=== PATIENT | male | born 1960 | race Caucasian/White ===

== ENCOUNTER → 2019-02-12 07:09 | Outpatient (CLI) | payer OTHER, SELFPAY ==
[2019-02-12 08:26] LABS: Add Manual Diff / Slide Review NO; Basophils Absolute Auto 0 /uL (0-100); Basophils Percent Auto 0.2 % (0-2); Eosinophils Absolute Auto 100 /uL (0-450); Eosinophils Percent Auto 0.7 % (2-4); Hematocrit 43.3 % (41-53); Hemoglobin 14.7 g/dL (13.5-17.5); Lymphocytes Absolute Auto 3100 /uL (1100-4500); Lymphocytes Percent Auto 32.4 % (25-40); Mean Corpuscular HGB Conc 34.1 % (30-36); Mean Corpuscular Volume 94.1 fL (80-100); Monocytes Absolute Auto 800 /uL (0-900); Monocytes Percent Auto 8.2 % (3-14); Neutrophils Absolute Auto 5600 /uL (1500-7000); Neutrophils Percent Auto 58.5 % (50-75); Platelet Count 317 X10^3/uL (150-400); Red Cell Distribution Width 13.9 % (11.6-14.8); White Blood Cell Count 9.6 X10^3/uL (4.5-11.0)
[2019-02-12 08:45] LABS: Appearance Urine UA CLEAR; Bilirubin Urine UA NEGATIVE (NEGATIVE); Color Urine UA YELLOW; Glucose Urine UA NEGATIVE (Negative); Ketones Urine UA NEGATIVE (NEGATIVE); Leukocyte Esterase Urine UA NEGATIVE (NEGATIVE); Nitrite Urine UA NEGATIVE (Negative); Occult Blood Urine UA NEGATIVE (Negative); Protein Urine UA NEGATIVE (Negative); Specific Gravity Urine UA 1.025 (1.000-1.035); Urobilinogen Urine UA 0.2 E.U./dL (0.2)
[2019-02-12 08:49] LABS: Alanine Aminotransferase 13 IU/L (21-72); Albumin 4.3 g/dL (3.5-5.0); Albumin Globulin Ratio 1.2 (1.0-2.8); Alkaline Phosphatase 81 U/L (38-126); Aspartate Aminotransferase 22 IU/L (17-59); BUN Creatinine Ratio 13.3 (6-22); Bilirubin Total 0.8 mg/dL (0.2-1.3); Blood Urea Nitrogen 12 mg/dL (9-20); Calcium 9.7 mg/dL (8.4-10.2); Carbon Dioxide 27 mmol/L (22-32); Chloride 104 mmol/L (98-107); Cholesterol 171 mg/dL (140-199); Estimated Glomerular Filt Rate > 60.0 mL/min (>60); Globulin 3.6 g/dL (1.7-4.1); Glucose 100 mg/dL (70-100); HDL Cholesterol 58 mg/dL (40-60); HEMOLYSIS < 15 (0-50); LDL Cholesterol Calculated 102 mg/dL (<100); Potassium 4.6 mmol/L (3.4-5.1); Sodium 139 mmol/L (137-145); Total Protein 7.9 g/dL (6.3-8.2); Triglycerides 55 mg/dL (35-150)
[2019-02-12 09:18] LABS: Prostate Specific Antigen Scrn 1.34 ng/mL (0.1-4.0)
[2019-02-12 09:40] LABS: Thyroid Stimulating Hormone 1.02 uIU/mL (0.47-4.68)
== END ==
PROVIDERS: PCP Family Medicine; Visit Provider Family Medicine
DX: Z12.5 Encounter for screening for malignant neoplasm of prostate (principal); Z13.220 Encounter for screening for lipoid disorders; Z13.29 Encounter for screening for other suspected endocrine disorder
CPT/HCPCS: 36415; 80053; 80061; 81003; 84443; 85025; G0103

== ENCOUNTER → 2019-07-09 07:02 | Outpatient (CLI) | payer OTHER, SELFPAY ==
[2019-07-09 08:18] LABS: Add Manual Diff / Slide Review NO; Basophils Absolute Auto 0 /uL (0-100); Basophils Percent Auto 0.2 % (0-2); Eosinophils Absolute Auto 100 /uL (0-450); Eosinophils Percent Auto 0.5 % (2-4); Hematocrit 38.1 % (41-53); Hemoglobin 12.9 g/dL (13.5-17.5); Lymphocytes Absolute Auto 2900 /uL (1100-4500); Lymphocytes Percent Auto 24.9 % (25-40); Mean Corpuscular HGB Conc 33.9 % (30-36); Mean Corpuscular Hemoglobin 30.8 PG (26-34); Mean Corpuscular Volume 90.9 fL (80-100); Monocytes Absolute Auto 900 /uL (0-900); Monocytes Percent Auto 8.1 % (3-14); Neutrophils Absolute Auto 7800 /uL (1500-7000); Neutrophils Percent Auto 66.3 % (50-75); Platelet Count 387 X10^3/uL (150-400); Red Blood Cell Count 4.19 X10^6/uL (4.5-5.9); White Blood Cell Count 11.7 X10^3/uL (4.5-11.0)
[2019-07-09 08:45] LABS: Alanine Aminotransferase 10 IU/L (<50); Albumin Globulin Ratio 1.2 (1.0-2.8); Alkaline Phosphatase 102 U/L (38-126); Aspartate Aminotransferase 19 IU/L (17-59); BUN Creatinine Ratio 16.7 (6-22); Bilirubin Total 0.5 mg/dL (0.2-1.3); Blood Urea Nitrogen 15 mg/dL (9-20); Calcium 9.3 mg/dL (8.4-10.2); Carbon Dioxide 29 mmol/L (22-32); Chloride 102 mmol/L (98-107); Estimated Glomerular Filt Rate > 60.0 mL/min (>60); Globulin 3.3 g/dL (1.7-4.1); Glucose 123 mg/dL (70-100); HEMOLYSIS < 15 (0-50); Sodium 138 mmol/L (137-145); Total Protein 7.3 g/dL (6.3-8.2)
[2019-07-09 08:48] LABS: HEMOLYSIS < 15 (0-50); Iron 58 ug/dL (49-181)
[2019-07-09 08:59] LABS: Percent Iron Saturation 19 % (20-50); Total Iron Binding Capacity 299 ug/dL (261-462); Transferrin 236 mg/dL (206-381)
== END ==
PROVIDERS: Visit Provider Nurse Practitioner
DX: F10.11 Alcohol abuse, in remission (principal); K92.0 Hematemesis; K92.1 Melena; R13.10 Dysphagia, unspecified
CPT/HCPCS: 36415; 80053; 83540; 83550; 85025

== ENCOUNTER → 2019-07-17 13:35 | Outpatient (CLI) | payer OTHER, SELFPAY ==
--- NOTE | 2019-07-17 13:37 | DI.US.S_ITS ---
PROCEDURE: US ABDOMEN COMPLETE INDICATIONS: ABDOMINAL PAIN, GERD TECHNIQUE: Real-time scanning was performed of the abdominal and retroperitoneal organs, with image documentation. COMPARISON: None. FINDINGS: Liver: Liver is normal in size and homogeneous in echotexture. Gallbladder: Small amount of gallbladder sludge; otherwise normal gallbladder. Biliary ducts: Intrahepatic bile ducts are non-dilated. Extrahepatic bile duct caliber measures 6.0 mm. Normal is 6-7 mm or less in diameter, or 10 mm or less post-cholecystectomy. Pancreas: Visualized portions of the pancreas are sonographically normal. Spleen: Spleen is normal in size and homogeneous in echotexture. Kidneys: Kidneys are normal in size and echotexture. Right kidney measures 10.8 cm long; left kidney measures 12.3 cm long. No hydronephrosis or nephrolithiasis. No solid masses. Aorta: Visualized aorta is normal in caliber at less than 3 cm. Iliacs: Proximal common iliac arteries are normal in caliber at less than 2.5 cm. IVC: Intrahepatic inferior vena cava is patent. Miscellaneous: No free abdominal fluid. IMPRESSION: Small amount of dependent gallbladder sludge; otherwise normal gallbladder. Cholelithiasis without acute cholecystitis. If sonographically occult acute cholecystitis is suspected, nuclear medicine HIDA scan could be performed for further evaluation. Dictated by: Stephon RODRIGUESA Interpreted: Abiola Booth MD on 07/17/2019 at 14:53 Approved by: Abiola Booth MD, PhD on 07/17/2019 at 15:00
== END ==
PROVIDERS: Visit Provider Nurse Practitioner
DX: K21.9 Gastro-esophageal reflux disease without esophagitis (principal); R10.9 Unspecified abdominal pain; K83.8 Other specified diseases of biliary tract; K80.20 Calculus of gallbladder without cholecystitis without obstruction
CPT/HCPCS: 76700

== ENCOUNTER 2019-08-20 08:21 | Emergency (ER) | payer OTHER, SELFPAY ==
[2019-08-20 08:27] VITALS: BP 164/97; PULSE 91; RESP 16; TEMP 37.4; O2SAT 100; BMI 20.6
--- NOTE | 2019-08-20 08:35 | DI.RAD.S_ITS ---
PROCEDURE: XR RIBS RT MIN 3V W CXR 1V INDICATIONS: Rib pain SOB with deep breath TECHNIQUE: 2 views of the right ribs were acquired, along with a single view chest. COMPARISON: [facility], CT, CT CHEST ABD PEL W CON, 08/20/2019, 9:19. FINDINGS: Surgical changes and devices: None. Bones and chest wall: There is an ovoid lucent lesion with an associated pathologic fracture involving the posterolateral 7th right rib. No additional fractures are identified. No definite additional osseous lesions are appreciated. No suspicious bony lesions. Overlying soft tissues appear unremarkable. Lungs and pleura: No pleural effusions or pneumothorax. Lungs appear clear. Mediastinum: Mediastinal contours appear normal. Heart size is normal. IMPRESSION: Pathologic fracture involving the posterolateral right 7th rib. The etiology of this is uncertain and may be related to a bone cyst. However, metastatic disease is difficult to exclude. Nuclear medicine bone scan would be helpful to evaluate for other lesions. Dictated by: Miguelito Coyle M.D. on 08/20/2019 at 8:49 Approved by: Miguelito Coyle M.D. on 08/20/2019 at 8:52
--- NOTE | 2019-08-20 08:58 | PC.NURSE ---
Patient reports right rib pain significantly worse with deep breath and movement of arm. Patient reports significant weight loss over last 6 months. Has been being evaluated for n/v and inability to keep food down. reports very frequent regurgitation of white thick foam maybe 3x an hr.
[2019-08-20 09:06] LABS: Add Manual Diff / Slide Review NO; Basophils Absolute Auto 100 /uL (0-100); Basophils Percent Auto 0.6 % (0-2); Eosinophils Absolute Auto 100 /uL (0-450); Eosinophils Percent Auto 0.4 % (2-4); Hematocrit 33.3 % (41-53); Hemoglobin 11.5 g/dL (13.5-17.5); Lymphocytes Absolute Auto 3200 /uL (1100-4500); Lymphocytes Percent Auto 24.3 % (25-40); Mean Corpuscular HGB Conc 34.5 % (30-36); Mean Corpuscular Hemoglobin 30.3 PG (26-34); Mean Corpuscular Volume 87.9 fL (80-100); Monocytes Absolute Auto 1000 /uL (0-900); Monocytes Percent Auto 7.5 % (3-14); Neutrophils Absolute Auto 8800 /uL (1500-7000); Neutrophils Percent Auto 67.2 % (50-75); Platelet Count 420 X10^3/uL (150-400); Red Blood Cell Count 3.78 X10^6/uL (4.5-5.9); Red Cell Distribution Width 13.7 % (11.6-14.8); White Blood Cell Count 13.1 X10^3/uL (4.5-11.0)
[2019-08-20 09:14] LABS: Alanine Aminotransferase 11 IU/L (<50); Albumin Globulin Ratio 1.2 (1.0-2.8); Alkaline Phosphatase 93 U/L (38-126); Aspartate Aminotransferase 16 IU/L (17-59); BUN Creatinine Ratio 22.9 (6-22); Bilirubin Total 0.3 mg/dL (0.2-1.3); Blood Urea Nitrogen 16 mg/dL (9-20); Calcium 9.5 mg/dL (8.4-10.2); Carbon Dioxide 29 mmol/L (22-32); Chloride 104 mmol/L (98-107); Estimated Glomerular Filt Rate > 60.0 mL/min (>60); Globulin 3.4 g/dL (1.7-4.1); Glucose 111 mg/dL (70-100); HEMOLYSIS < 15 (0-50); Lipase 88 U/L (23-300); Potassium 4.3 mmol/L (3.4-5.1); Sodium 140 mmol/L (137-145); Total Protein 7.4 g/dL (6.3-8.2)
--- NOTE | 2019-08-20 09:14 | ED_ITS ---
HPI - Chest Pain General Chief Complaint: Chest Pain Stated Complaint: sharp pain in ribs on right side Time Seen by Provider: 08/20/19 08:42 Source: patient Mode of arrival: Family Vehicle Limitations: no limitations History of Present Illness HPI narrative: Patient comes emergency department complaining of right rib pain and profound weight loss over the last roughly 6 months. Patient states he has lost roughly 40 lb and has had trouble keeping many foods down. Patient states that he vomits about 3 times a day and it is usually white foam. There are certain foods that he can eat, but he has had to limit his diet quite severely. Patient states that he is a smoker and has an ongoing cough. He states that rib pain developed several days ago and it is hard for him to raise his right arm. Patient states he seen both his primary doctor and GI specialist and has an endoscopy scheduled in the near future. He had an ultrasound of his gallbladder about a month and half ago, and he states that his doctor told him that he ?needed more imaging?. He states that he has not had any fevers. He did not have any trauma to his right ribs and cannot remember a distinct time of onset. Patient denies blood in his stools. He states that he had a couple of episodes of vomiting blood a few months ago, and that this prompted the GI referral. No current hematemesis. No hemoptysis. No other complaints at this time. Related Data Previous Rx's Medication Instructions Recorded diph,pertuss(acel),tet vac(PF) 0.5 ml IM ONCE #0.5 ml 02/19/19 omeprazole 40 mg capsule,delayed 40 mg PO DAILY #90 cap 07/16/19 release sucralfate 100 mg/mL oral 10 ml PO QACHS #420 ml 07/16/19 suspension hydrocodone-acetaminophen 1 tab PO Q4H PRN #60 tab 08/20/19 ondansetron 4 mg PO Q6H PRN #30 tab 08/20/19 Allergies Allergy/AdvReac Type Severity Reaction Status Date / Time CHICKEN FEATHERS Allergy Mild Uncoded 08/20/19 08:34 Review of Systems Constitutional Constitutional: Denies chills, Denies fatigue, Denies fever(s), Denies frequent falls, Denies lethargy and Denies weakness Eyes Eyes: Denies change in vision, Denies eye discharge, Denies irritation and Denies loss of vision ENT Ears, Nose, Mouth, and Throat: Denies change in voice, Denies dizziness, Denies neck pain, Denies sore throat and Denies throat swelling Cardiovascular Cardiovascular: Reports chest pain (Right rib), Denies irregular heart rhythm, Denies lightheadedness, Denies palpitations, Denies dyspnea, Denies dyspnea on exertion and Denies orthopnea Respiratory Respiratory: Denies cough, Denies dyspnea, Denies dyspnea on exertion and Denies wheezing Gastrointestinal Gastrointestinal: Denies abdominal pain, Denies change in bowel habits, Denies diarrhea, Reports nausea and Reports vomiting Comments: Acid reflux Genitourinary Genitourinary: Denies hematuria, Denies flank pain, Denies urinary incontinence and Denies urinary urgency Musculoskeletal Musculoskeletal: Denies back pain, Denies muscle weakness, Denies neck pain, Denies numbness and Denies tingling Integumentary/Breasts Skin/Breast: Denies pruritus, Denies erythema, Denies rash and Denies wounds Neurologic Neurologic: Denies behavioral changes, Denies confusion, Denies dizziness, Denies frequent falls, Denies loss of vision, Denies numbness, Denies tingling and Denies weakness Psychiatric Psychiatric: Denies anxiety, Denies behavioral changes, Denies confusion, Denies depression, Denies homicidal ideation and Denies suicidal ideation Endocrine Endocrine: Denies fatigue, Denies flushing and Denies palpitations Hematologic/Lymphatic Hematologic/Lymphatic: Denies easy bruising Allergic/Immunologic Allergic/Immunologic: Denies urticaria, Denies throat swelling and Denies wheezing Patient History Social History Smoking Status: Current every day smoker Smoking Status: Current every day smoker tobacco type: cigarettes Substance Use Type: does not use Exam Initial Vital Signs Initial Vital Signs: Vital Signs Temperature 99.4 F 08/20/19 08:27 Pulse Rate 91 H 08/20/19 08:27 Respiratory Rate 16 08/20/19 08:27 Blood Pressure 164/97 H 08/20/19 08:27 Pulse Oximetry 100 08/20/19 08:27 Const General: cooperative and well developed Nutritional Appearance: well nourished Orientation: alert, awake, oriented x3 and not confused [facility] Head: normocephalic and atraumatic Ears: external ears normal Nose: external nose normal and No nasal discharge Face and sinus: face symmetric and No dry mucous membranes Mouth: oral mucosae normal and moist mucous membranes Teeth and gingiva: dentition normal Eyes General: appearance normal, both eyes and all related structures Eyelids: eyelids normal Conjunctivae: conjunctivae normal Sclera: sclerae normal Pupils: PERRL EOM: EOM intact bilaterally Neck Neck: normal visual inspection, trachea midline, No lymphadenopathy, No midline deformity and No JVD Lymphatic: No lymphedema Chest Other: Patient has tenderness of his right lateral rib cage. No step-off or other deformity. Resp Effort & Inspection: normal respiratory effort, able to speak in complete sentences, no respiratory distress and no use of accessory muscles Auscultation: clear to auscultation bilaterally, no rales, no rhonchi and no wheezes Cardio Rate: regular rate Rhythm: regular rhythm Heart Sounds: no click, no gallops, no murmurs and no rubs Pulses: normal peripheral pulses GI Inspection: non-distended Palpation: soft, no hepatosplenomegaly, No guarding, No pulsatile mass and No tender Auscultation: normal bowel sounds Back/Spine/Pelvis Back: No CVA tenderness Cervical Spine: cervical ROM normal and No pain with cervical ROM Thoracic/Lumbar Spine: thoracic and lumbar spine normal to inspection Skin General: no rashes or lesions noted, No jaundice and No petechiae Neuro General: alert, oriented x3, gait normal and no focal motor deficits Speech: speech normal Extrem General: full ROM, no clubbing, cyanosis or edema, no pedal edema and no calf tenderness Psych Appearance: well kempt Mental Status: mental status grossly normal Attitude: cooperative Thought Content: normal and suicidality Judgment: judgment good Course Course Course Narrative: Patient was worked up with labs and CTs of the chest and abdomen pelvis with IV contrast. Labs were unremarkable, but CT scan showed what appears to be malignant change in the esophagus, as well as metastatic lesions in the lungs and Mrs. the Cristian. Patient was also had found to have a pathologic lesion with fracture of his right 7th rib. I discussed all the findings with the patient and advised him that these findings are consistent with malignancy. He I spoke with Dr. banuelos of Oncology, who stated that he would have his office speak with the patient and get him an expedited appointment. I did communicate this to the patient. I did also speak with Dr. Yang, who is on-call at the [facility], and communicated with him that Dr. Banuelos would like the patient to be scoped sooner than September 05, if possible. Dr. Yang stated that he would have his office look schedule and that they would give the patient a call with new appointment information. The patient has been prescribed Vicodin for his pain. We have discussed home management of symptoms, as well as the usual indications for return. Orders Ordered: Discontinued Medications Sodium Chloride (Normal Saline 0.9%) 1,000 mls @ 1,000 mls/hr IV BOLUS ONE Stop: 08/20/19 09:58 Last Infusion: 08/20/19 11:08 Dose: 0 mls/hr Documented by: Admin: 08/20/19 09:46 Dose: 1,000 mls/hr Documented by: ECTOR Vital Signs Vital signs: Vital Signs - 8 hr 08/20/19 08:27 Temperature 99.4 F Pulse Rate 91 H Respiratory Rate 16 Blood Pressure 164/97 H Pulse Oximetry 100 MDM - Chest Pain Medical Records Data Attestation: I reviewed the patient's medical records. Lab Data Attestation: I reviewed the patient's lab results. Result diagrams: 08/20/19 08:50 08/20/19 08:50 Labs: Lab Results 08/20/19 08/20/19 Range/Units 08:50 08:50 WBC 13.1 H (4.5-11.0) X10^3/uL RBC 3.78 L (4.5-5.9) X10^6/uL Hgb 11.5 L (13.5-17.5) g/dL Hct 33.3 L (41-53) % MCV 87.9 (80-100) fL MCH 30.3 (26-34) PG MCHC 34.5 (30-36) % RDW 13.7 (11.6-14.8) % Plt Count 420 H (150-400) X10^3/uL Neut % (Auto) 67.2 (50-75) % Lymph % (Auto) 24.3 L (25-40) % Sanborn % (Auto) 7.5 (3-14) % Eos % (Auto) 0.4 L (2-4) % Baso % (Auto) 0.6 (0-2) % Neut # (Auto) 8800 H (6946-6726) /uL Lymph # (Auto) 3200 (5552-4848) /uL Sanborn # (Auto) 1000 H (0-900) /uL Eos # (Auto) 100 (0-450) /uL Baso # (Auto) 100 (0-100) /uL Sodium 140 (137-145) mmol/L Potassium 4.3 (3.4-5.1) mmol/L Chloride 104 (98-107) mmol/L Carbon Dioxide 29 (22-32) mmol/L BUN 16 (9-20) mg/dL Creatinine 0.70 (0.66-1.25) mg/dL Estimated GFR > 60.0 (>60) mL/min BUN/Creatinine Ratio 22.9 H (6-22) Glucose 111 H (70-100) mg/dL Calcium 9.5 (8.4-10.2) mg/dL Total Bilirubin 0.3 (0.2-1.3) mg/dL AST 16 L (17-59) IU/L ALT 11 (<50) IU/L Alkaline Phosphatase 93 (38-126) U/L Total Protein 7.4 (6.3-8.2) g/dL Albumin 4.0 (3.5-5.0) g/dL Globulin 3.4 (1.7-4.1) g/dL Albumin/Globulin Ratio 1.2 (1.0-2.8) Lipase 88 (23-300) U/L Imaging Data CT chest abdomen pelvis: Radiologist's Impression: PROCEDURE: CT CHEST ABD PEL W CON INDICATIONS: vomiting, pain, weight loss TECHNIQUE: After the administration of intravenous contrast, 5 mm thick sections acquired from the lung apices to the symphysis. 5 mm coronal and sagittal reformats were performed, with additional 7 mm MIP reformats through the lungs. For radiation dose reduction, the following was used: automated exposure control, adjustment of mA and/or kV according to patient size. COMPARISON: None. FINDINGS: Image quality: Excellent. CHEST: Lungs and pleura: Mild centrilobular emphysema. Mild biapical predominant pulmonary fibrosis. No pulmonary nodules: Image 87/3:7 mm peripheral right upper lobe pulmonary nodule with central c avitation. Image 119/3: Anterior subpleural 5 mm right upper lobe pulmonary nodule. Image 161/3:6 mm right middle lobe pulmonary nodule with central cavitation. Image 45/3:4 mm left upper lobe pulmonary nodule. Image 173/3:4 mm left lower lobe pulmonary nodule. No acute airspace opacities. No pleural effusions or pneumothorax. Central and peripheral airways appear patent and normal in caliber. Mediastinum: Heart size is normal. No pericardial effusion. Necrotic 1.7 cm left paratracheal/AP window lymph node. Thoracic aorta and central pulmonary arteries are normal in size. Extensive diffuse thickening of the mid thoracic aorta consistent with either superficial spreading esophageal malignancy or potentially lymphoma. No hiatal hernia. Chest wall: Lytic destructive expansile lateral right seventh rib metastatic lesion. No axillary or supraclavicular adenopathy by size criteria. Thyroid gland is unremarkable. ABDOMEN: Solid organs: Liver is normal in size and enhancement. Gallbladder is unremarkable. Biliary system is non dilated. Pancreas enhances normally. Spleen is normal in size and enhancement. No adrenal nodules. Kidneys demonstrate normal size and enha ncement, without hydronephrosis. There are at least 2 nonobstructing left lower pole renal stones, the larger of which measures 6 mm. Peritoneum and bowel: Bowel loops demonstrate normal wall thickness and caliber. No free fluid or air. Nodes and vessels: No retroperitoneal or mesenteric adenopathy by size criteria. Aorta and inferior vena cava are normal in size. Diffuse atherosclerotic calcifications. Miscellaneous: No ventral hernias. PELVIS: Genitourinary: Bladder wall thickness is normal. Miscellaneous: No inguinal hernias or adenopathy. Bones: No suspicious bony lesions. No vertebral body compression fractures. IMPRESSION: 1. Findings most likely represent long segment involvement of the thoracic esophagus the superficial spreading esophageal carcinoma with metastatic disease to the lungs, mediastinum, and right lateral seventh rib. 2. Findings include multiple pulmonary nodules, 2 of which are cavitating. Also present is a lytic destructive right lateral seventh rib metastatic lesion. Comment: Direct visualization of the esophagus is recommended. The seventh rib lesion would be amenable to CT-guided biopsy for tissue diagnosis. Comment: Findings were discussed with Dr. Toribio at the time of study dictation. Dictated by: Ricky Quarles M.D. on 08/20/2019 at 10:09 Approved by: Ricky Quarles M.D. on 08/20/2019 at 10:25 X-ray ribs: Radiologist's Impression: PROCEDURE: XR RIBS RT MIN 3V W CXR 1V INDICATIONS: Rib pain SOB with deep breath TECHNIQUE: 2 views of the right ribs were acquired, along with a single view chest. COMPARISON: [facility], CT, CT CHEST ABD PEL W CON, 08/20/2019, 9:19. FINDINGS: Surgical changes and devices: None. Bones and chest wall: There is an ovoid lucent lesion with an associated pathologic fracture involving the posterolateral 7th right rib. No additional fractures are identified. No definite additional osseous lesions are appreciated. No suspicious bony lesions. Overlying soft tissues appear unremarkable. Lungs and pleura: No pleural effusions or pneumothorax. Lungs appear clear. Mediastinum: Mediastinal contours appear normal. Heart size is normal. IMPRESSION: Pathologic fracture involving the posterolateral right 7th rib. The etiology of this is uncertain and may be related to a bone cyst. However, metastatic disease is difficult to exclude. Nuclear medicine bone scan would be helpful to evaluate for other lesions. Dictated by: Miguelito Coyle M.D. on 08/20/2019 at 8:49 Approved by: Miguelito Coyle M.D. 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 There is also a cancerous lesion in your right 7th rib, which has caused a fracture through the bone. This is the cause of the side pain you been having. We are still waiting for a call back personal fitness manager, but your case was able to be discussed with the oncologist on-call, Dr. Banuelos. He would like you to be seen very soon and they will be calling you on her cell to set up an appointment. Most likely, you will be seen within the week if not sooner. Dr. Banuelos would also like your endoscopy to be done sooner than September 05. As such, we will continue our efforts to get a hold of the personal fitness manager and make arrangements for a sooner EGD appointment if at all possible. Their clinic will call you to let you know of any updated appointment times. Prescriptions: New hydrocodone-acetaminophen 5-325 mg tablet 1 tab PO Q4H PRN (Reason: pain) Qty: 60 RF: 0 ondansetron 4 mg tablet,disintegrating 4 mg PO Q6H PRN (Reason: nausea and vomiting) Qty: 30 RF: 0 No Action Adacel(Tdap Adolesn/Adult)(PF) 2 Lf-(2.5-5-3-5 mcg)-5Lf/0.5 mL suspension 0.5 ml IM ONCE Qty: 0.5 RF: 0 sucralfate 100 mg/mL suspension 10 ml PO QACHS Qty: 420 RF: 2 omeprazole 40 mg capsule,delayed release(DR/EC) 40 mg PO DAILY Qty: 90 RF: 3 Referrals: [facility] Gastroenterology [Provider Group] Suni Banuelos MD [Physician] -
--- NOTE | 2019-08-20 09:24 | DI.CT.S_ITS ---
PROCEDURE: CT CHEST ABD PEL W CON INDICATIONS: vomiting, pain, weight loss TECHNIQUE: After the administration of intravenous contrast, 5 mm thick sections acquired from the lung apices to the symphysis. 5 mm coronal and sagittal reformats were performed, with additional 7 mm MIP reformats through the lungs. For radiation dose reduction, the following was used: automated exposure control, adjustment of mA and/or kV according to patient size. COMPARISON: None. FINDINGS: Image quality: Excellent. CHEST: Lungs and pleura: Mild centrilobular emphysema. Mild biapical predominant pulmonary fibrosis. No pulmonary nodules: Image 87/3:7 mm peripheral right upper lobe pulmonary nodule with central cavitation. Image 119/3: Anterior subpleural 5 mm right upper lobe pulmonary nodule. Image 161/3:6 mm right middle lobe pulmonary nodule with central cavitation. Image 45/3:4 mm left upper lobe pulmonary nodule. Image 173/3:4 mm left lower lobe pulmonary nodule. No acute airspace opacities. No pleural effusions or pneumothorax. Central and peripheral airways appear patent and normal in caliber. Mediastinum: Heart size is normal. No pericardial effusion. Necrotic 1.7 cm left paratracheal/AP window lymph node. Thoracic aorta and central pulmonary arteries are normal in size. Extensive diffuse thickening of the mid thoracic aorta consistent with either superficial spreading esophageal malignancy or potentially lymphoma. No hiatal hernia. Chest wall: Lytic destructive expansile lateral right seventh rib metastatic lesion. No axillary or supraclavicular adenopathy by size criteria. Thyroid gland is unremarkable. ABDOMEN: Solid organs: Liver is normal in size and enhancement. Gallbladder is unremarkable. Biliary system is non dilated. Pancreas enhances normally. Spleen is normal in size and enhancement. No adrenal nodules. Kidneys demonstrate normal size and enhancement, without hydronephrosis. There are at least 2 nonobstructing left lower pole renal stones, the larger of which measures 6 mm. Peritoneum and bowel: Bowel loops demonstrate normal wall thickness and caliber. No free fluid or air. Nodes and vessels: No retroperitoneal or mesenteric adenopathy by size criteria. Aorta and inferior vena cava are normal in size. Diffuse atherosclerotic calcifications. Miscellaneous: No ventral hernias. PELVIS: Genitourinary: Bladder wall thickness is normal. Miscellaneous: No inguinal hernias or adenopathy. Bones: No suspicious bony lesions. No vertebral body compression fractures. IMPRESSION: 1. Findings most likely represent long segment involvement of the thoracic esophagus the superficial spreading esophageal carcinoma with metastatic disease to the lungs, mediastinum, and right lateral seventh rib. 2. Findings include multiple pulmonary nodules, 2 of which are cavitating. Also present is a lytic destructive right lateral seventh rib metastatic lesion. Comment: Direct visualization of the esophagus is recommended. The seventh rib lesion would be amenable to CT-guided biopsy for tissue diagnosis. Comment: Findings were discussed with Dr. Toribio at the time of study dictation. Dictated by: Ricky Quarles M.D. on 08/20/2019 at 10:09 Approved by: Ricky Quarles M.D. on 08/20/2019 at 10:25
[2019-08-20] MEDS: SODIUM CHLORIDE 0.9% 1,000 ML 1000 ML IV (09:46)
[2019-08-20 11:07] VITALS: BP 174/111; PULSE 79; RESP 18; O2SAT 98
[2019-08-20 11:50] VITALS: BP 158/102; PULSE 69; RESP 19; O2SAT 100
--- NOTE | 2019-08-23 13:11 | ONC.MSW ---
Description: Initial Referral Navigation T/C Activity: Called pt to confirm that we received his referral from Shanda, introduced myself as the Navigator and briefly explained availability of ongoing assistance and role of navigation. Per Shanda, pt needed to be scheduled on 08/29 w/Dr. Pierson. BARREL BANDER confirmed that we have scheduled him for a 3:20pm appt time, with 3:00 check-in. He will need assistance with FMLA as well as other questions when he comes in, BARREL BANDER will assist him at that time.
== END 2019-08-20 12:08 | disposition home or self-care (01) ==
PROVIDERS: Emergency Provider Emergency Medicine
DX: M84.48XA Pathological fracture, other site, initial encounter for fracture (principal); D37.8 Neoplasm of uncertain behavior of other specified digestive organs; D38.1 Neoplasm of uncertain behavior of trachea, bronchus and lung; R11.10 Vomiting, unspecified; F17.200 Nicotine dependence, unspecified, uncomplicated
CPT/HCPCS: 36415; 71101; 71260; 74177; 80053; 83690; 85025; 96360; 99284; Q9967

== ENCOUNTER → 2019-08-29 15:31 | Oncology outpatient (ONC) | payer OTHER, SELFPAY ==
[2019-08-29 16:05] VITALS: BP 138/83; PULSE 65; RESP 18; TEMP 36.9; O2SAT 100
--- NOTE | 2019-08-29 17:45 | P.CONONC_ITS ---
History of Present Illness - Data of Consult Consult date: 08/29/19 Primary Care Provider: KARIN Wagoner - Consult Narrative Narrative: Phani García is a 59 year old male, presenting today to establish oncology care. Sometime in spring 2018, he developed gradually worsening swallowing difficulty, frequent burping, odynophagia, and nausea. He referred to a provider and was given Pepcid. His dysphagia gradually progressed over time and he started to get frequent postprandial vomiting. He has lost over 30 lb, from baseline 160 lb to know about 128 lb. In May 2019, he had 1 episode of hematemesis and referred to a provider, who referred to GI for EGD, which was not done until last week. Then in July 2019, he was reaching for something above head at his work and heard a pop, associated with sudden pain in the right lateral rib. The pain has continued so far. Eventually he referred to [facility] ER on 01/23/2020. CT C/a/P with contrast on that day showed extensive diffuse wall thickening of midthoracic esophagus, associated with bilateral pulmonary subcentimeter nodules, including a 7 mm cavitary nodule in right upper lobe, and a 6 mm cavitary nodule in right middle lobe, necrotic 1.7 cm left paratracheal/AP window lymph node, lytic destructive expansile lateral right 7th rib metastatic lesion, all consistent with metastatic esophageal carcinoma. He underwent EGD on 08/22/2019, which detected circumferential ulcerated/necrotic partially obstructing mass extending from 28-38 cm with sparing of normal Z-line at 40 cm. Stomach showed mild hemorrhagic gastritis and mid body. Distal esophageal biopsy was positive for invasive moderately differentiated squamous cell carcinoma. He is here to establish oncology care. Lately, he has not had dysphagia. He does have mild odynophagia, frequent burping, which smells poorly. His appetite is good. His weight has plateaued. He still has pain associated with right lateral 7th rib pathologic fracture, but the pain has somewhat improved. 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 He lives in [place]. He is a chronic smoker but is trying to quit. He used to drink alcohol excessively but not since 04/2019. He does not have any serious comorbid conditions. He has history of multiple cutaneous squamous and basal cell carcinomas. CC: Suni Pierson MD Home Medications and Allergies Home Medications Medication Instructions Recorded Confirmed Type diph,pertuss(acel),tet vac(PF) 0.5 ml IM ONCE #0.5 ml 02/19/19 08/29/19 Rx hydrocodone-acetaminophen 1 tab PO Q4H PRN #60 tab 08/20/19 08/29/19 Rx ondansetron 4 mg PO Q6H PRN #30 tab 08/20/19 08/29/19 Rx ondansetron 8 mg PO Q8H PRN #30 tab 08/29/19 Rx Allergies Allergy/AdvReac Type Severity Reaction Status Date / Time CHICKEN FEATHERS Allergy Mild Uncoded 08/20/19 08:34 Medical History - Medical, Surgical, Family History Medical History: Medical History (Last Updated 08/29/19 @ 17:57 by Suni Pierson MD) Anorexia Basal cell carcinoma (BCC) Bloody emesis Epigastric pain GERD (gastroesophageal reflux disease) Squamous cell carcinoma of skin Tobacco dependence Weight loss of more than 10% body weight - Social History Smoking Status: Current every day smoker Smoking packs per day: 1 (currently <10 cigs a day) Years smoked: 35 Alcohol Intake: former Review of Systems - Patient Self-Reported Symptoms SR Constitution: Weight loss/gain, Fatigue/Malaise SR ears, nose, mouth, throat issues: Difficulty swallowing SR respiratory issues: Difficulty breathing SR Gastrointestinal issues: Vomiting SR Musculoskeletal issues: Muscle weakness, Back or neck pain, Bone pain (pain associated with right rib fractrure) SR Neuro issues: Headache Exam Vital signs: Vital Signs Temp Pulse Resp BP Pulse Ox 08/29/19 16:05 98.5 F 65 18 138/83 100 Intake and Output 08/29/19 08/29/19 08/29/19 07:59 15:59 23:59 Other: Weight 58.5 kg Patient Weight 08/29/19 23:59 Weight 58.5 kg - Constitutional positive no acute distress - Routine HEENT Exam Head: Present: normocephalic, atraumatic Eye: Present: EOMI, PERRL ENT: Present: mucous membranes moist - Routine Neck Exam Present: supple. Absent: lymphadenopathy - Routine Chest/Breast/Axilla Exam Chest wall exam standard: Present: tenderness Axillae: Absent: lymphadenopathy - Routine Respiratory Exam Present: Clear to auscultation bilaterally - Routine Cardiovascular Exam Present: RRR - Routine Abdominal Exam Present: soft. Absent: tenderness, organomegaly - Routine Extremities Exam Absent: edema Assessment and Plan (1) Primary cancer of esophagus with metastasis to other site Current visit: No Status: Acute 59-year-old gentleman, ECOG PS 1, presenting with metastatic mid esophageal squamous cell carcinoma, associated with bilateral sub cm cavitary pulmonary metastases, rib metastasis at the right 7th rib associated with pathologic fracture, and mediastinal adenopathy. We reviewed of pathology and CT findings. We discussed that this unfortunately represents advanced incurable disease. We discussed palliative role of chemotherapy. He would like to proceed with that. He asked about his prognosis without and with treatment. Without treatment, his prognosis would be estimated less than 1 year. Palliative combination chemotherapy prolongs survival among patients with metastatic esophageal carcinoma. Later, immune checkpoint inhibitor therapy may be also effective. At this point, I would recommend first-line cisplatin/docetaxel. His regimen will include cisplatin and docetaxel each given at 70 milligram/meter squared on day 1, repeat cycles every 21 days, followed by pegfilgrastim on day 2. We discussed potential side effects including nausea, vomiting, weakness, fatigue, hair loss, ototoxicity, neurotoxicity, nephrotoxicity, myelosuppression. He would like to proceed. Plan: PET-CT for initial staging Referral to [facility] for placement of Port-A-Cath Return to clinic in 2 weeks for cycle 1 chemotherapy He has ondansetron to use at home as needed on day 4 after chemotherapy or later We discussed importance of adequate day dehydration He had multiple relevant important questions that we discussed to his best satisfaction. He is trying to balance his work and treatment and will need to discuss options with his employer, later if needed with our social service director. (2) Pathologic rib fracture Current visit: No Status: Acute A pathologic right 7th rib fractures related to metastatic esophageal squamous cell carcinoma. Currently uses hydrocodone as needed. The pain is expected to further improve overtime and with systemic therapy. (2) Pathologic rib fracture Qualifiers: Encounter type: initial encounter Qualified Code(s): M84.48XA - Pathological fracture, other site, initial encounter for fracture
--- NOTE | 2019-09-04 11:24 | ONC.MSW ---
Description: [place] Paid Medical [place] Forms Activity: Completed the forms as requested by patient. Will upload to the [place] Paid Leave website once pt has signed his portion, later this afternoon.
--- NOTE | 2019-09-13 13:03 | ONC.MSW ---
Description: PET Appeal Activity: Per this PITTING MACHINE OPERATOR's conversation w/Dr. Greenwood re: the need for a peer-peer to appeal the denial, PITTING MACHINE OPERATOR spoke with Dr. Pierson's triage nurse, faxed her the denial letter and Dr. Pierson's note, requested that he urgently do this in order for pt to begin chemo.
== END ==
PROVIDERS: PCP Nurse Practitioner; Visit Provider Internal Medicine Hematology & Oncology
DX: C15.4 Malignant neoplasm of middle third of esophagus (principal); C78.01 Secondary malignant neoplasm of right lung; C78.02 Secondary malignant neoplasm of left lung; C79.51 Secondary malignant neoplasm of bone; M84.58XA Pathological fracture in neoplastic disease, other specified site, initial encounter for fracture; F17.200 Nicotine dependence, unspecified, uncomplicated
CPT/HCPCS: 99205; 99215

== ENCOUNTER 2019-09-04 14:37 | Day surgery (SDC) | payer OTHER, SELFPAY ==
--- NOTE | 2019-09-04 | DI.RAD.S_ITS ---
PROCEDURE: XR CHEST 1V INDICATIONS: SANCHEZ CATH TECHNIQUE: One view of the chest was acquired. COMPARISON: [facility], CT, CT CHEST ABD PEL W CON, 08/20/2019, 9:19. FINDINGS: Surgical changes and devices: None. Lungs and pleura: Lungs are clear. No pleural effusions or pneumothorax. Mediastinum: Mediastinal contours appear normal. Heart size is normal. Port-A-Cath tip extends from the right internal jugular approach into the upper right atrium. Bones and chest wall: No suspicious bony lesions. Overlying soft tissues appear unremarkable. IMPRESSION: Port-A-Cath in position from a right internal jugular approach, the Port-A-Cath tip extends into the upper right atrium. No pneumothorax. Dictated by: Avelino Cummings M.D. on 09/05/2019 at 9:17 Approved by: Avelino Cummings M.D. on 09/05/2019 at 9:19
[2019-09-04 15:47] VITALS: BP 139/89; PULSE 81; RESP 20; TEMP 36.4; O2SAT 100
[2019-09-04] MEDS: LACTATED RINGERS 1,000 ML 42 ML IV (15:55)
--- NOTE | 2019-09-04 16:32 | PM.HP.1 ---
History of Present Illness History of Present Illness Date Patient Seen: 09/04/19 Time Patient Seen: 16:32 Chief complaint: [id number] Narrative: This is a 59-year-old male with newly diagnosed metastatic esophageal cancer who's here for Port-A-Cath placement. He had lost significant amount weight was having some dysphagia ultimately was found to have an esophageal mass as well as metastasis to the chest and liver. His past medical history is significant for tobacco use as well as longstanding gastroesophageal reflux. No history of previous myocardial infarction diabetes stroke peripheral vascular disease. Patient History Medical History Anorexia (Acute) Basal cell carcinoma (BCC) (Acute) Bloody emesis (Acute) Epigastric pain (Acute) GERD (gastroesophageal reflux disease) (Acute) Squamous cell carcinoma of skin (Acute) Tobacco dependence (Acute) Weight loss of more than 10% body weight (Acute) Family & Social History Social History: household members none Tobacco & Substance use: Tobacco type cigarettes Smoking Status Current every day smoker alcohol intake former Substance Use Type does not use Meds Home Medications and Allergies Home Medications Medication Instructions Recorded Confirmed Type hydrocodone-acetaminophen 1 tab PO Q4H PRN #60 tab 08/20/19 09/04/19 Rx ondansetron 4 mg PO Q6H PRN #30 tab 08/20/19 09/04/19 Rx ondansetron 8 mg PO Q8H PRN #30 tab 08/29/19 Rx Allergies Allergy/AdvReac Type Severity Reaction Status Date / Time CHICKEN FEATHERS Allergy Mild Uncoded 09/04/19 15:46 Review of Systems Review of Systems Narrative: A 10 point review of systems is negative except as noted in the HPI Exam Vital Signs (past 8 hours): - 09/04/19 15:47 Temperature 97.5 F L Pulse Rate 81 Respiratory Rate 20 Blood Pressure 139/89 Pulse Oximetry 100 Oxygen Delivery Method Room Air Narrative Exam Narrative: General-no acute distress, cachectic male HEENT-moist mucous membranes, no scleral icterus Neck-supple, no lymphadenopathy Chest- non labored respirations, clear to auscultation bilaterally Cardiac-regular rate no peripheral edema Abdomen-soft, nontender, non distended Extremities-warm, well perfused Neurological-alert and oriented, no focal deficits Assessment & Plan Assessment and plan (1) Esophageal carcinoma: Current visit: Yes Status: Acute Assessment & Plan narrative: This is a 59-year-old male with metastatic esophageal carcinoma who's here for Port-A-Cath placement. We discussed the risks of the operation including bleeding infection pneumothorax need for further procedure. His questions have been answered and he is in agreement with this plan. Will plan for a ultrasound-guided right internal jugular Port-A-Cath placement.
[2019-09-04] MEDS: CEFAZOLIN 2 GM/100 ML FROZ.PIGGY IV (16:41)
--- NOTE | 2019-09-04 17:02 | SUR.OPER ---
Supine on padded OR bed, head on pillow, b/l arms padded and tucked at sides, legs uncrossed, safety belt at thigh, tape over blanket over lower legs .
[2019-09-04] MEDS: BUPIVACAINE 0.25% (PF) VIAL 30 ML INJ (17:17)
[2019-09-04] MEDS: HEPARIN 5,000 UNIT, SODIUM CHLORIDE 0.9% 50 ML IV (17:20)
[2019-09-04 17:42] VITALS: BP 129/90; PULSE 75; RESP 20; TEMP 36.4; O2SAT 100
--- NOTE | 2019-09-04 17:42 | PM.OP.1 ---
Operative Date/Time/Diagnoses Date of procedure: 09/04/19 Time of procedure: 17:42 Pre-op diagnosis: Metastatic esophageal carcinoma Post-op diagnosis: same Procedure & Clinicians Procedure: Port-A-Cath placement Same procedure as scheduled: Yes Indications: This is a 59-year-old gentleman with metastatic esophageal carcinoma presents for a Port-A-Cath placement. Surgeon: Solitario Leonard Operative Notes Findings: Intraoperative fluoroscopy demonstrates the tip of the catheter within the SVC. Ultrasound guidance shows the wire running within the right internal jugular vein. Estimated Blood Loss (mL): 10 Procedure in detail: Patient was brought to the operating room placed supine on table. Bilateral lower extremity compressive devices were applied. General anesthesia was induced and he was intubated with an LMA. He was then prepped and draped in usual sterile fashion. Time-out was performed ensure the correct patient procedure necessary equipment within the operating room. He received 2 g of Ancef prior to incision. Under ultrasound guidance the right internal jugular vein was accessed under direct visualization. The guidewire was then threaded through the needle. Its placement was then confirmed using fluoroscopy. The dilator was then placed over the guidewire. The catheter was then inserted through the sheath. Placement was again confirmed with fluoroscopy. A subcutaneous pocket was made in the right chest wall. The tunneler device was used to move the catheter from the neck to the chest pocket. The port was attached after it was primed with heparined saline. The port was tested to ensure that it flushed easily and had good blood return. The port was then secured to the underlying fascia using interupted 0 Prolene suture. Hemostasis was achieved. The wound was irrigated with sterile saline. The subcutaneous tissues were reapproximated with the 3 0 Vicryl and then skin closed with 4-0 Monocryl. The skin was sealed with Dermabond. Patient tolerated procedure well. The sponge and instrument count at the end operation was correct. Patient emerged from general anesthesia was extubated and taken to the postoperative care unit in stable condition Complications: none Post-operative Condition: stable Disposition: same day surgery
[2019-09-04 17:49] VITALS: BP 133/90; PULSE 70; RESP 10; O2SAT 100
[2019-09-04 17:58] VITALS: BP 143/95; PULSE 73; RESP 10; O2SAT 100
[2019-09-04] MEDS: GABAPENTIN 300 MG CAPSULE PO (17:58)
[2019-09-04 18:01] VITALS: BP 148/97; PULSE 71; RESP 14; TEMP 36.5; O2SAT 100
== END 2019-09-04 18:26 | disposition home or self-care (01) ==
PROVIDERS: PCP Nurse Practitioner; Visit Provider Surgery
PROC: (CPT 36561; principal; 2019-09-04 16:00)
DX: C15.9 Malignant neoplasm of esophagus, unspecified (principal); Z45.2 Encounter for adjustment and management of vascular access device; F17.210 Nicotine dependence, cigarettes, uncomplicated
CPT/HCPCS: 36561; 71045; 76000; C1788; J0690; J1100; J1644; J1885; J2250; J2405; J2704; J3010